=== PATIENT | female | born 1930 | race Caucasian/White ===

== ENCOUNTER 2016-05-10 10:37 | Outpatient (CLI) | payer MEDICARE, OTHER | END 2016-05-10 10:40 | LOC: POD 10:37 | PROVIDERS: ATTEND Podiatrist Public Medicine | DX: B35.1 Tinea unguium (principal); L60.0 Ingrowing nail; M79.674 Pain in right toe(s); M79.675 Pain in left toe(s); Z79.01 Long term (current) use of anticoagulants; Z51.81 Encounter for therapeutic drug level monitoring | CPT/HCPCS: 11721; 36415; 85610; G0463 ==

== ENCOUNTER 2016-05-30 14:49 | Outpatient (CLI) | payer MEDICARE, OTHER | END 2016-05-30 14:50 | LOC: LAB 14:49 | PROVIDERS: ATTEND Pediatrics | DX: Z51.81 Encounter for therapeutic drug level monitoring (principal); Z79.01 Long term (current) use of anticoagulants; I48.0 Paroxysmal atrial fibrillation | CPT/HCPCS: 36415; 85610 ==

== ENCOUNTER 2016-06-21 15:35 | Outpatient (CLI) | payer MEDICARE, OTHER | END 2016-06-21 15:36 | LOC: LAB 15:35 | PROVIDERS: ATTEND Pediatrics | DX: Z51.81 Encounter for therapeutic drug level monitoring (principal); Z79.01 Long term (current) use of anticoagulants; I48.0 Paroxysmal atrial fibrillation | CPT/HCPCS: 36415; 85610 ==

== ENCOUNTER 2016-07-20 10:04 | Outpatient (CLI) | payer OTHER | END 2016-07-20 10:05 | LOC: LAB 10:04 | PROVIDERS: ATTEND Pediatrics | DX: Z51.81 Encounter for therapeutic drug level monitoring (principal); Z79.01 Long term (current) use of anticoagulants; I48.0 Paroxysmal atrial fibrillation | CPT/HCPCS: 36415; 85610 ==

== ENCOUNTER 2016-08-30 11:19 | Outpatient (CLI) | payer OTHER | END 2016-08-30 11:20 | LOC: POD 11:19 | PROVIDERS: ATTEND Podiatrist Public Medicine | DX: B35.1 Tinea unguium (principal); L60.0 Ingrowing nail; M79.674 Pain in right toe(s); M79.675 Pain in left toe(s) | CPT/HCPCS: 11721; G0463 ==

== ENCOUNTER 2016-09-13 10:57 | Outpatient (CLI) | payer OTHER | END 2016-09-13 11:00 | LOC: LAB 10:57 | PROVIDERS: ATTEND Pediatrics | DX: I48.0 Paroxysmal atrial fibrillation (principal) | CPT/HCPCS: 36415; 85610 ==

== ENCOUNTER 2016-10-19 13:32 | Outpatient (CLI) | payer OTHER | END 2016-10-19 13:33 | LOC: LAB 13:32 | PROVIDERS: ATTEND Pediatrics | DX: I48.0 Paroxysmal atrial fibrillation (principal) | CPT/HCPCS: 36415; 85610 ==

== ENCOUNTER 2016-11-29 10:39 | Outpatient (CLI) | payer OTHER | END 2016-11-29 10:40 | LOC: POD 10:39 | PROVIDERS: ATTEND Podiatrist Public Medicine | DX: B35.1 Tinea unguium (principal); L60.0 Ingrowing nail; M79.674 Pain in right toe(s); M79.675 Pain in left toe(s) | CPT/HCPCS: 11721; G0463 ==